=== PATIENT | male | born 1975 | race Caucasian/White ===

== ENCOUNTER 2019-05-09 09:25 | Emergency (ER) | payer BC, SELFPAY ==
--- NOTE | ~2019-05-09 | XR_ITS ---
EXAMINATION: XR lumbar spine 2-3V DATE: 05/09/2019 10:49 INDICATION: Right low back pain 2 days after picking up a motorcycle. TECHNIQUE: Anteroposterior, lateral views of the lumbar spine and cone-down lateral view of the lumbo sacral junction were obtained. COMPARISON: None. FINDINGS: Alignment is normal. Vertebral body heights are normal. Mild disc height loss at L3-L4 and L4-L5. No fracture identified. IMPRESSION: 1. Mild lumbar spondylosis. No acute osseous abnormality. Reviewed, dictated and finalized at [facility]. /DIE MAKER
--- NOTE | 2019-05-09 10:05 | ED.GENADULT ---
HPI - General Adult General Chief complaint: Back Pain/Injury Stated complaint: Back pain Time Seen by Provider: 05/09/19 10:33 Source: patient and RN notes reviewed Mode of arrival: ambulatory Limitations: no limitations History of Present Illness HPI narrative: On Wednesday, 3 days ago, this patient was at home in his garage bending over to brass pickler a heavy motorcycle piece. He was not actually lifting at the time but he developed back pain and right lumbar area which has been intermittent since that time. Intermittently it also radiates down to the posterior aspect the right knee to the level of the knee. Does not radiate into the calf from the foot. Is not noticing associated with any numbness or tingling sensation. He does not hurt on the left side of the back and no pain in the left leg or either hip. He does not hurt in the thoracic or neck area. He is taking a prescription nonsteroidal anti-inflammatory medicine that was prescribed by another physician at one time for tendinitis of his elbow and that did seem to help some with this. 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 He is never had any history of ruptured disc or fractured vertebrae back in the past. He would like to have a back x-ray obtained today. Pain is increased with movement such as bending and turning. Related Data Allergies Allergy/AdvReac Type Severity Reaction Status Date / Time No Known Allergies Allergy Unverified 06/12/18 09:06 Review of Systems Review of Systems: Narrative: CONSTITUTIONAL: Denies fever, chills, or sweats. Noncontributory except as pertains to the past medical history and the history of present illness. EYES: Denies visual changes, redness, or discharge. ENT: Denies rhinorrhea, congestion, sore throat, or otalgia. CARDIOVASCULAR: Denies chest pain, palpitations, or edema. RESPIRATORY: Denies cough or dyspnea. GASTROINTESTINAL: Denies abdominal pain, nausea, vomiting, or diarrhea. GENITOURINARY: Denies dysuria or hematuria. SKIN: Denies rash or itching. MUSCULOSKELETAL: Denies back pain, joint pain, or myalgia. NEUROLOGIC: Denies headache, numbness, or weakness. PSYCHIATRIC: Denies anxiety or depression. PMFSH Comments At time of signature, I have reviewed and agree with nursing past medical, surgical, social, and family history.Please see nursing chart for further information. There is no relevant family history pertinent to the presenting complaint. Exam Narrative: Exam Narrative: GENERAL: Well-appearing, well-nourished, and in no acute distress. HEAD: Normocephalic, atraumatic. EYES: PERRLA and EOMI. EARS: TM's clear bilaterally and the canals are clear. NOSE: Nares clear, no rhinorrhea or epistaxis. THROAT:Mucous membranes moist.Oropharynx Normal without erythema or exudates. NECK: Supple. No adenopathy of the neck, supraclavicular, axillary, or inguinal areas. RESPIRATORY: No respiratory distress. Airway patent. Respirations non-labored. Clear to auscultation. No wheezes, no rales, no retractions, no use accessory muscle respirations. Patient's not cyanotic and not dyspneic. Pulse ox on room air is 98% current temperature is 37.0 ?C. HEART: Regular rate and rhythm. No murmur heard. Normal peripheral pulses. ABDOMEN: Soft, nontender, nondistended, normal active bowel sounds.No masses. No rebound or guarding, No organomegaly. EXTREMITIES: No clubbing/cyanosis/ edema. Normal strength & range of motion. Patient has palpable muscle spasm in the right paravertebral lumbar musculature. There is no on the left side. Straight leg lift is negative bilaterally. He has discomfort when arising from a seated in reclining position but is able to do so. He has full flexion, extension, rotation at the waist. Patient's exam shows that he has plus 2 out of 4 patellar and Achilles reflexes and plus 2 out of 4 femoral, popliteal, and pedal pulses. The upper extremity exam is normal. Left lower extreme exam is normal. Se
[2019-05-09 10:10] VITALS: BP 140/85; PULSE 79; RESP 18; TEMP 37; O2SAT 98
== END 2019-05-09 11:25 | disposition home or self-care (01) ==
PROVIDERS: Emergency Provider Family Medicine; PCP Family Medicine
DX: S39.012A Strain of muscle, fascia and tendon of lower back, initial encounter (principal); X50.0XXA Overexertion from strenuous movement or load, initial encounter
CPT/HCPCS: 72100; 99213; G0463

== ENCOUNTER 2019-06-17 16:14 | Emergency (ER) | payer BC, SELFPAY ==
[2019-06-17 16:19] VITALS: BP 133/74; PULSE 93; RESP 16; TEMP 37.3; O2SAT 98
--- NOTE | 2019-06-17 16:30 | ED.GENADULT ---
HPI - General Adult General Chief complaint: Upper Respiratory Infection Stated complaint: cough fever ears Time Seen by Provider: 06/17/19 16:30 Source: patient Mode of arrival: ambulatory Limitations: no limitations History of Present Illness HPI narrative: 43-year-old male patient presents to the [facility] with complaints of cold symptoms for the past week. Patient states he has had body aches, runny nose, cough at times has been coughing up some sputum. Shortness of breath at times. Patient states that he is a smoker. Patient states that he did not get a flu shot this year. Patient states he has been taking DayQuil, NyQuil and Robitussin. Related Data Home Medications Medication Instructions Recorded Confirmed No Home Medications 06/17/19 06/17/19 Allergies Allergy/AdvReac Type Severity Reaction Status Date / Time No Known Allergies Allergy Verified 06/17/19 16:31 Review of Systems Review of Systems: Narrative: CONSTITUTIONAL: Denies fever, positive body aches, chills, and sweats. EYES: Denies visual changes, redness, or discharge. ENT: Positive rhinorrhea, denies congestion, sore throat, or otalgia. CARDIOVASCULAR: Denies chest pain, palpitations, or edema. RESPIRATORY: Positive cough with dyspnea at times. GASTROINTESTINAL: Denies abdominal pain, nausea, vomiting, or diarrhea. GENITOURINARY: Denies dysuria or hematuria. SKIN: Denies rash or itching. MUSCULOSKELETAL: Denies back pain, joint pain, positive myalgia. NEUROLOGIC: Denies headache, numbness, or weakness. PSYCHIATRIC: Denies anxiety or depression. PMFSH Comments At the time of my signature I agree with nursing past medical history, surgical, social, and family history. There is no relevant family history pertinent to the presenting complaint. Exam Narrative: Exam Narrative: GENERAL: Well-appearing, well-nourished, and in no acute distress. HEAD: Normocephalic, atraumatic. No tenderness noted to frontal or maxillary sinuses on palpation. EYES: PERRLA and EOMI. ENT: Nares clear, no rhinorrhea or epistaxis. Mucous membranes moist. Posterior pharynx with no erythema, tonsillar margin, exudates or lesions present. Bilateral TMs are clear no erythema or foreign bodies in the canal. NECK: Supple. No lymphadenopathy CHEST: Clear to auscultation. No respiratory distress. Patient will talk in clear complete sentences. No tripoding noted at this time. HEART: Regular rate and rhythm. No murmur heard. Normal peripheral pulses. ABDOMEN: Soft, nontender, nondistended, normal active bowel sounds. EXTREMITIES: Normal range of motion. No edema. SKIN: Warm, dry, no rash. NEURO: No focal deficits. Alert and oriented x3. Course Reevaluation(s) Reevaluation #1: Notify patient that he is negative today for influenza however given his symptoms I do not think that he necessarily meets the criteria for the code Z 19 testing at this time but I am concerned that he is symptomatic. Discussed with patient that the fact that he is not having wheezing or severe shortness of breath at this time is reassuring. Discussed with patient I am going to be taking him off work for at least 8 days given the fact that he is already had symptoms now for a week. Discussed with him I would like him to self medicate at home with Tylenol, increase his fluids and self isolate for at least this time. Discussed with patient he must be symptom-free for 72 hours before returning to work however if his symptoms continue to worsen with worsening shortness of breath and he would need to go to the ER for further evaluation and testing. Discussed with patient that he would need to call the ER or the health department to see if he would need this covered 19 testing before he arrives. Patient verbalized understanding of this and denies any other questions or concerns at this time. Patient was given paper instructions on signs and symptoms to look for as well as websites and hotlines that he can call if his
== END 2019-06-17 16:53 | disposition home or self-care (01) ==
PROVIDERS: Emergency Provider Nurse Practitioner Family; PCP Family Medicine
DX: J06.9 Acute upper respiratory infection, unspecified (principal); F17.200 Nicotine dependence, unspecified, uncomplicated
CPT/HCPCS: 87804; 99212; G0463

== ENCOUNTER 2023-06-15 08:43 | Outpatient (CLI) | payer BC, SELFPAY ==
--- NOTE | ~2023-06-15 | CT_ITS ---
EXAMINATION: CT sinus wo con DATE: 06/15/2023 09:00 INDICATION: Chronic sinusitis. Headache. Dizziness. TECHNIQUE: Computed tomography (CT) of the paranasal sinuses was performed without contrast. Iterativ e reconstruction technique was employed. Exam dose: 296.82 mGy-cm total exam DLP. COMPARISON: None FINDINGS: There is rightward bowing of the nasal septum. There is prominent symmetric soft tissue swe lling of the nasal turbinates. There is focal soft tissue swelling at the maxillary ostia bilaterally, left greater than right but t he ostia are patent. The maxillary sinuses are otherwise normally developed and aerated. Diminutive aerated right frontal sinus. There is soft tissue thickening at the left frontoethmoid are a. The ethmoid air cells are otherwise normally developed and aerated bilaterally. The sphenoid sinuses are normally developed and aerated. The mastoid air cells are well-developed and aerated. Middle and inner ear apparatus appear normal bilaterally. IMPRESSION: Lehman more inferior nasal septum Soft tissue swelling of nasal turbinates Soft tissue thickening of the maxillary ostia without occlusion Mild focal soft tissue thickening at the left frontoethmoid area Paranasal sinuses and mastoid air cells are otherwise normally developed and aerated Reviewed, dictated and finalized at [facility]. Reviewed, dictated and finalized at [facility]. IMPRESSION: Lehman more inferior nasal septum Soft tissue swelling of nasal turbinates Soft tissue thickening of the maxillary ostia without occlusion Mild focal soft tissue thickening at the left frontoethmoid area Paranasal sinuses and mastoid air cells are otherwise normally developed and ae rated
== END 2023-06-15 08:44 ==
LOC: MICIMG 08:44
PROVIDERS: PCP Allergy & Immunology; Visit Provider Allergy & Immunology
DX: J32.9 Chronic sinusitis, unspecified (principal)
CPT/HCPCS: 70486